=== PATIENT | female | born 1980 | race Caucasian/White ===

== ENCOUNTER 2019-10-06 12:51 | Outpatient (CLI) | payer OTHER, SELFPAY ==
[2019-10-06 13:31] LABS: Add Urine Microscopic? YES; Appearance Urine Clear (Clear); Bilirubin Urine Negative (Negative); Blood Urine 1+ (Negative); Color Urine Yellow (Yellow); Glucose Urine UA Negative (Negative); Ketones Urine Negative (Negative); Leukocyte Esterase Ur Negative LEU/UL (Negative); Nitrate Urine Negative (Negative); Protein Urine Negative (Negative); Specific Grav Ur 1.025 (1.010-1.020); Urobilinogen Urine 0.2 mg/dL (0.2-1.0)
[2019-10-06 13:50] LABS: Squamous Epithelial Cell Urine Few /hpf (Few); WBC Urine 0-3 /hpf (0-3)
[2019-10-06 13:51] LABS: Bacteria Urine 2+ /hpf; Mucus Urine Heavy /lpf
== END 2019-10-06 12:52 | disposition home or self-care (01) ==
LOC: CHSLAB 12:52
PROVIDERS: PCP Nurse Practitioner Family; Visit Provider Nurse Practitioner Family
DX: R30.9 Painful micturition, unspecified (principal)
CPT/HCPCS: 81001

== ENCOUNTER 2020-12-04 16:54 | Outpatient (CLI) | payer OTHER, SELFPAY ==
[2020-12-04 18:27] LABS: SARS-CoV-2 RNA PCR Negative (Negative)
== END 2020-12-04 16:55 | disposition home or self-care (01) ==
LOC: CHSLAB 16:56
PROVIDERS: PCP Nurse Practitioner Family; Visit Provider Nurse Practitioner Family
DX: Z20.822 Contact with and (suspected) exposure to COVID-19 (principal)
CPT/HCPCS: C9803; U0003; U0005

== ENCOUNTER 2021-05-13 09:07 | Outpatient (CLI) | payer OTHER, SELFPAY ==
--- NOTE | ~2021-05-13 | US_ITS ---
EXAMINATION: US pelvic complete w TV DATE: 05/13/2021 09:37 INDICATION: Pelvic pain Comparison:Ultrasound dated 01/07/2019 TECHNIQUE: Multiple transabdominal and endovaginal sonographic images of the pelvis performed. FINDINGS: The uterus measures 9.1 x 3.2 x 5.3 cm. The endometrial complex measures 1.6 cm. There is f luid in the endometrium. The right ovary measures 3.2 x 2.5 x 2.5 cm and the left ovary measures 3.2 x 2.2 x 2.1 cm. There ar e small follicles in each ovary. Normal doppler signal in both ovaries. There is no free fluid in the pelvis. There are no abnormal masses seen on either side. IMPRESSION: 1. Thickened heterogeneous endometrium with endometrial fluid. Reviewed, dictated and finalized at location B. COORDINATOR
[2021-05-13 09:18] LABS: Basophils Absolute Auto 0.05 K/mm3 (0.00-0.10); Basophils Percent Auto 0.9 % (0.0-1.0); Eosinophils Absolute Auto 0.24 K/mm3 (0.02-0.50); Eosinophils Percent Auto 4.3 % (1.0-6.0); Hematocrit 43.1 % (35.0-49.0); Hemoglobin 14.3 g/dL (12.0-15.0); Immature Granulocyte Absolute 0.02 K/mm3 (0.00-0.00); Immature Granulocyte Percent A 0.4 % (0.0-0.0); Lymphocytes Percent Auto 35.5 % (18.0-42.0); Mean Corpuscular HGB Conc 33.2 g/dL (32.0-36.0); Mean Corpuscular Hemoglobin 29.6 pg (27.0-31.0); Mean Corpuscular Volume 89.2 fL (78.0-102.0); Mean Platelet Volume 8.9 fl (9.2-11.8); Monocytes Absolute Auto 0.26 K/mm3 (0.10-0.90); Monocytes Percent Auto 4.6 % (2.0-11.0); Neutrophils Absolute Auto 3.1 K/mm3 (1.7-7.2); Neutrophils Percent Auto 54.3 % (50.0-70.0); Platelet Count Result 219 K/mm3 (150-420); Red Blood Count 4.83 M/mm3 (4.20-5.40); White Blood Count 5.6 K/mm3 (4.8-10.8)
[2021-05-13 11:10] LABS: Alanine Aminotransferase 18 U/L (14-59); Albumin Level 3.8 g/dL (3.4-5.0); Alkaline Phosphatase 42 U/L (46-116); Anion Gap 9 mmol/L (8-16); Aspartate Amino Transferase 12 U/L (15-37); Bilirubin,Total 0.5 mg/dL (0.00-1.00); Blood Urea Nitrogen 11 mg/dL (7-18); Calcium 8.6 mg/dL (8.5-10.1); Carbon Dioxide 26 mmol/L (21-32); Chloride 105 mmol/L (98-108); Estimated Glomerular Filt Rate > 60; Glucose 84 mg/dL (70-99); Iron 107 ug/dL (50-170); Magnesium 2.1 mg/dL (1.8-2.4); Osmolality Calculated 288 mOsm/kg (285-295); Potassium 4.1 mmol/L (3.5-5.1); Sodium 140 mmol/L (136-145); Total Protein 6.5 g/dL (6.4-8.2); Vitamin B12 274 pg/mL (193-986)
[2021-05-13 11:25] LABS: Free T4 Free Thyroxine 0.96 ng/dL (0.76-1.46)
[2021-05-15 15:42] LABS: Vitamin D 25 Hydroxy 32 ng/mL (30-100)
== END 2021-05-13 09:08 | disposition home or self-care (01) ==
LOC: CHSIMG 09:08
PROVIDERS: PCP Nurse Practitioner Family; Visit Provider Nurse Practitioner Family
DX: R10.2 Pelvic and perineal pain (principal); N94.10 Unspecified dyspareunia; R53.83 Other fatigue; Z79.899 Other long term (current) drug therapy
CPT/HCPCS: 36415; 76830; 76856; 80053; 82306; 82607; 83540; 83735; 84439; 84443; 85025

== ENCOUNTER 2021-12-04 12:30 | Outpatient (CLI) | payer OTHER, SELFPAY ==
--- NOTE | 2021-12-04 12:49 | ECG_ITS ---
Measurements Intervals [place] Rate: 66 P: 76 [place]: 142 QRS: 80 QRSD: 91 T: 59 QT: 418 QTc: 438 Interpretive Statements SINUS RHYTHM NONSPECIFIC ST ABNORMALITY ABNORMAL ECG NO PREVIOUS ECG AVAILABLE FOR COMPARISON Electronically Signed On 12-04-2021 13:42:49 CDT by Rayo Neil M.D.
[2021-12-04 12:50] LABS: Basophils Absolute Auto 0.02 K/mm3 (0.00-0.10); Basophils Percent Auto 0.5 % (0.0-1.0); Eosinophils Absolute Auto 0.02 K/mm3 (0.02-0.50); Eosinophils Percent Auto 0.5 % (1.0-6.0); Hematocrit 44.1 % (35.0-49.0); Hemoglobin 15.3 g/dL (12.0-15.0); Immature Granulocyte Absolute 0.01 K/mm3 (0.00-0.00); Immature Granulocyte Percent A 0.2 % (0.0-0.0); Lymphocytes Absolute Auto 1.42 K/mm3 (1.10-4.50); Lymphocytes Percent Auto 33.4 % (18.0-42.0); Mean Corpuscular HGB Conc 34.7 g/dL (32.0-36.0); Mean Corpuscular Hemoglobin 30.5 pg (27.0-31.0); Monocytes Absolute Auto 0.22 K/mm3 (0.10-0.90); Monocytes Percent Auto 5.2 % (2.0-11.0); Neutrophils Absolute Auto 2.6 K/mm3 (1.7-7.2); Neutrophils Percent Auto 60.2 % (50.0-70.0); Platelet Count Result 239 K/mm3 (150-420); Red Blood Count 5.01 M/mm3 (4.20-5.40); Red Cell Distribution Width 12.1 % (11.6-14.4); White Blood Count 4.3 K/mm3 (4.8-10.8)
[2021-12-04 13:16] LABS: Alanine Aminotransferase 24 U/L (14-59); Alkaline Phosphatase 56 U/L (46-116); Anion Gap 9 mmol/L (8-16); Aspartate Amino Transferase 17 U/L (15-37); Bilirubin,Total 0.6 mg/dL (0.00-1.00); Blood Urea Nitrogen 8 mg/dL (7-18); Calcium 8.9 mg/dL (8.5-10.1); Carbon Dioxide 29 mmol/L (21-32); Chloride 101 mmol/L (98-108); Estimated Glomerular Filt Rate > 60; Free T4 Free Thyroxine 1.45 ng/dL (0.76-1.46); Glucose 99 mg/dL (70-99); Osmolality Calculated 286 mOsm/kg (285-295); Potassium 3.1 mmol/L (3.5-5.1); Sodium 139 mmol/L (136-145); Thyroid Stimulating Hormone 0.55 uIU/mL (0.36-3.74); Total Protein 7.1 g/dL (6.4-8.2)
[2021-12-08 17:09] LABS: Vitamin D 25 Hydroxy 78 ng/mL (30-100)
== END 2021-12-04 12:31 | disposition home or self-care (01) ==
LOC: CHSLAB 12:33
PROVIDERS: PCP Nurse Practitioner Family; Visit Provider Nurse Practitioner Family
DX: R53.83 Other fatigue (principal); Z79.899 Other long term (current) drug therapy
CPT/HCPCS: 36415; 80053; 82306; 84439; 84443; 85025; 93005

== ENCOUNTER 2022-01-15 12:38 | Outpatient (CLI) | payer OTHER, SELFPAY ==
[2022-01-15 13:27] LABS: HIV 1 P24 AG Negative (Negative); HIV 1/2 AB Negative (Negative)
[2022-01-17 15:52] LABS: RPR Screen Non-Reactive (Non-Reactive)
[2022-01-18 04:54] LABS: Hepatitis B Surface Antigen Nonreactive (Nonreactive); Hepatitis C Signal to Cutoff 0.01 ratio (<1.00); Hepatitis C Virus Antibody Nonreactive (Nonreactive)
[2022-01-20 10:34] LABS: HSV 1 IgM Screen Negative (Negative); HSV 2 IgM Screen Negative (Negative)
== END 2022-01-15 12:39 | disposition home or self-care (01) ==
LOC: CHSLAB 12:39
PROVIDERS: PCP Nurse Practitioner Family; Visit Provider Student in an Organized Health Care Education/Training Program
DX: Z20.2 Contact with and (suspected) exposure to infections with a predominantly sexual mode of transmission (principal)
CPT/HCPCS: 36415; 86592; 86695; 86696; 86703

== ENCOUNTER 2022-04-28 16:39 | Outpatient (NON) | payer OTHER, SELFPAY ==
[2022-04-28 16:49] LABS: Add Urine Microscopic? NO; Appearance Urine Clear (Clear); Bilirubin Urine Negative (Negative); Blood Urine Negative (Negative); Color Urine Light Yellow (Yellow); Glucose Urine UA Negative (Negative); Ketones Urine Negative (Negative); Leukocyte Esterase Ur Negative LEU/UL (Negative); Nitrate Urine Negative (Negative); Protein Urine Negative (Negative); Specific Grav Ur 1.015 (1.010-1.020); Urobilinogen Urine 0.2 mg/dL (0.2-1.0); pH Urine 7.5 (5.0-8.0)
== END 2022-04-28 16:40 | disposition home or self-care (01) ==
PROVIDERS: Visit Provider Nurse Practitioner Family
DX: R39.9 Unspecified symptoms and signs involving the genitourinary system (principal)
CPT/HCPCS: 81003

== ENCOUNTER 2022-10-23 18:38 | Emergency (ER) | payer OTHER, SELFPAY ==
[2022-10-23 18:44] VITALS: BP 141/84; PULSE 71; RESP 18; TEMP 36.8; O2SAT 98
[2022-10-23 18:47] VITALS: BP 141/84; PULSE 71; RESP 18; TEMP 36.8; O2SAT 98
[2022-10-23] MEDS: ORPHENADRINE CITRATE 30 MG/ML 2 ML VIAL 60 MG IM (18:59)
[2022-10-23] MEDS: KETOROLAC (*BKC) 60 MG/2 ML VIAL IM (18:59)
--- NOTE | 2022-10-23 19:00 | ED.BACK ---
HPI - Back Pain/Injury General Chief Complaint: Back Pain/Injury Stated Complaint: lower back pain Time Seen by Provider: 10/23/22 18:45 Source: patient Mode of arrival: ambulatory Limitations: no limitations History of Present Illness HPI Narrative: this is a 42-year-old female that just got back into town and while at the airport bent over to reach for her ID and felt a twinge in her left lower back with radiation into her left lower leg, currently she has pain in her L4 left paravertebral area with no radiation of her pain no numbness or tingling no saddle paresthesias no other injuries. MD elicited complaint: back pain Pertinent past history: prior back pain Onset (ago): day(s) Timing: constant Severity: moderate Pain scale (0-10): 8 Similar Symptoms Previously: Yes Quality: sharp and stabbing Related Data Home Medications Medication Instructions Recorded Confirmed acetaminophen 325 mg capsule 325 mg PO Q6H PRN Pain 09/04/20 10/23/22 (Tylenol) ibuprofen 600 mg tablet (IBU) 600 mg PO Q6H PRN Pain 09/04/20 10/23/22 clonazepam 0.5 mg tablet 0.5 mg PO TID PRN Anxiety 01/15/22 10/23/22 fluoxetine 40 mg capsule See Rx Instructions .Route .COMPLEX 04/28/22 10/23/22 clonazepam 0.5 mg tablet 0.5 mg PO BID 10/23/22 10/23/22 lamotrigine 25 mg tablet 25 mg PO BID 10/23/22 10/23/22 Allergies Allergy/AdvReac Type Severity Reaction Status Date / Time No Known Allergies Allergy Verified 10/23/22 18:46 Review of Systems Review of Systems: All systems reviewed & are unremarkable except as noted in HPI and below PMFSH Past Medical History Medical History Anemia Anxiety Depression Elective Hypertension Miscarriage Vaginal delivery Surgical History Surgical History H/O LEEP History of breast augmentation History of endometrial ablation History of tubal ligation Previous section [place] teeth removed Family History Family History Sibling Rectal cancer Father Bladder cancer Social History Social History Smoking status: Former smoker Tobacco type: e-cigarettes/vaping Alcohol intake: current Lack of Transportation: No Lack of Food: Never True Current Housing: I Have Housing Concerned About Future Housing: No Difficulty Paying Gas/Electric Bills: YES Difficulty Paying for Meds: No Currently Unemployed: YES Education: Trade/Vocational Certificate Difficulty w/ Childcare or Family Care: No Living arrangements: with family Occupation/Education: unemployed Exam Const: General: healthy appearing Nutritional Appearance: well nourished HENMT: Head: normal to inspection Neck: Neck: normal visual inspection and no lymphadenopathy Chest: Chest palpation & inspection: normal inspection of the chest Resp: Effort & Inspection: normal respiratory effort Auscultation: clear to auscultation bilaterally Cardio: Rate: regular rate Rhythm: regular rhythm GI: GI Palp: Yes Soft to palpation Auscultation: normal bowel sounds : General: Yes bladder normal to palpation Back/Spine/Pelvis: Back: no CVA tenderness Skin: General skin exam: normal color Rashes: no rashes Neuro: General: patient oriented x3 and moves all extremities Psych: Other: Negative straight leg raising test, does have L4 left paravertebral tenderness with palpation. Course Course Emergency Course: Patient received a dose of IM Toradol and IM muscle relaxer the patient's pain level has improved and advised no heavy lifting no bending or stretching and follow up with her primary if symptoms persist. Vital Signs Vital signs: Vital Signs Temperature 36.8 C 10/23/22 18:44 Pulse Rate 71 10/23/22 18:44 Respiratory Rate 18 10/23/22 18:44 Blood Pressur
[2022-10-23 19:20] VITALS: BP 130/82; PULSE 84; RESP 18; O2SAT 99
== END 2022-10-23 19:26 | disposition home or self-care (01) ==
PROVIDERS: Emergency Provider Emergency Medicine; PCP Nurse Practitioner Family
DX: S39.012A Strain of muscle, fascia and tendon of lower back, initial encounter (principal); I10 Essential (primary) hypertension; F17.219 Nicotine dependence, cigarettes, with unspecified nicotine-induced disorders; Z79.1 Long term (current) use of non-steroidal anti-inflammatories (NSAID); X50.0XXA Overexertion from strenuous movement or load, initial encounter
CPT/HCPCS: 96372; 99284; J1885; J2360

== ENCOUNTER 2022-10-28 15:24 | Outpatient (CLI) | payer OTHER, SELFPAY ==
--- NOTE | ~2022-10-28 | XR_ITS ---
EXAMINATION: XR lumbar spine 2-3V DATE: 10/28/2022 15:45 INDICATION: Low back pain, unspecified. TECHNIQUE: 3 views of lumbar spine were obtained. COMPARISON: None. FINDINGS: There is 4 degrees dextrocurvature of lumbar spine. Vertebral body heights are normal. Ther e is mildly decreased disc height at L3-L4 with endplate osteophytes. There is multilevel mild facet joint osteoarthritis. IMPRESSION: 1. Mild lumbar spondylosis. Reviewed, dictated and finalized at location E. IMPRESSION: 1. Mild lumbar spondylosis.
== END 2022-10-28 15:25 | disposition home or self-care (01) ==
LOC: CHSIMG 15:26
PROVIDERS: PCP Nurse Practitioner Family; Visit Provider Nurse Practitioner Family
DX: M54.50 Low back pain, unspecified (principal); M43.06 Spondylolysis, lumbar region
CPT/HCPCS: 72100

== ENCOUNTER 2022-12-16 11:02 | Outpatient (CLI) | payer OTHER, SELFPAY ==
[2022-12-16 12:10] LABS: HIV 1 P24 AG Negative (Negative); HIV 1/2 AB Negative (Negative)
[2022-12-19 16:51] LABS: RPR Screen Non-Reactive (Non-Reactive)
[2022-12-20 22:25] LABS: Hepatitis Be Antigen Nonreactive
[2022-12-20 22:27] LABS: Hepatitis C Virus Antibody Nonreactive
== END 2022-12-16 11:03 | disposition home or self-care (01) ==
LOC: CHSLAB 11:04
PROVIDERS: PCP Nurse Practitioner Family; Visit Provider Registered Nurse
DX: Z20.2 Contact with and (suspected) exposure to infections with a predominantly sexual mode of transmission (principal)
CPT/HCPCS: 36415; 86592; 86695; 86696; 86803; 87350; 87806

== ENCOUNTER 2022-12-23 09:06 | Outpatient (CLI) | payer OTHER, SELFPAY ==
--- NOTE | ~2022-12-23 | MMUS_ITS ---
EXAMINATION: MM diagnostic suki BI w olivia, US breast RT limited HISTORY: Referring physician reportedly felt a lump in the mid inner right breast TECHNIQUE: ML, MLO and CC 3-D tomosynthesis images of both breasts were performed and synthetic 2-D i mages were generated. CAD analysis was submitted and interpreted. High resolution targeted right vicky st ultrasound was performed. COMPARISON: None BREAST PARENCHYMAL COMPOSITION: There are scattered areas of fibroglandular density. FINDINGS: MAMMOGRAPHIC FINDINGS: No suspicious mass or architectural distortion, malignant calcification, skin thickening or retractio n is detected. ULTRASOUND: No suspicious mass or shadowing, cyst or other significant sonographic abnormality is noted at 3:00 5 cm from the nipple at the area of reported possible breast lump. IMPRESSION: 1. No mammographic or sonographic evidence of malignancy 2. Routine annual mammographic screening is recommended BI-RADS Category 1: Negative Reviewed, dictated and finalized at location A. IMPRESSION: 1. No mammographic or sonographic evidence of malignancy 2. Routine annual mammographic screening is recommended BI-RADS Category 1: Negative
== END 2022-12-23 09:07 | disposition home or self-care (01) ==
LOC: CHSIMG 09:07
PROVIDERS: PCP Nurse Practitioner Family; Visit Provider Registered Nurse
DX: N63.15 Unspecified lump in the right breast, overlapping quadrants (principal)
CPT/HCPCS: 76642; 77062; 77066; G0279

== ENCOUNTER 2023-06-13 21:38 | Emergency (ER) | payer MEDICAID, SELFPAY ==
--- NOTE | ~2023-06-13 | XR_ITS ---
EXAM: XR ankle LT min 3V DATE: 06/13/2023 21:56 HISTORY: FALL YESTERDAY. LEFT ANKLE PAIN. . COMPARISON: None available. FINDINGS: Normal mineralization. No fracture or dislocation. No lytic or blastic lesion. Joint space s are maintained. No erosion or periosteal change. Soft tissues within normal limits. IMPRESSION: No acute osseous finding in the left ankle. Reviewed, dictated and finalized at location K. [employer]
[2023-06-13 21:44] VITALS: BP 141/92; PULSE 76; RESP 20; TEMP 36.6; O2SAT 99
--- NOTE | 2023-06-13 21:49 | ED.LOWEXIN ---
HPI - Extremity Injury (Lower) General Chief Complaint: Extremity Injury, Lower Stated Complaint: injury to right ankle Time Seen by Provider: 06/13/23 21:46 Source: patient Mode of arrival: ambulatory Limitations: no limitations History of Present Illness HPI Narrative: Patient is a 42-year-old female with significant past medical history presents today with a left ankle injury. Patient denied before was drinking and fell down a ramp that is a wheelchair ramp and hurt her left ankle. Is very swollen and she has tried to keep ice on it and take ibuprofen is still swelling. She states today is very painful and the swelling has not gone down. complaint: ankle injury Onset (ago): day(s) Type of Injury: blunt and inversion Place: street/outdoors Severity: moderate Severity scale (1-10): 6 Relieving factors: NSAID and cold therapy Exacerbating factors: weight bearing and movement Context: fall and direct blow Associated symptoms: swelling Other symptoms: none Treatments prior to arrival: cold therapy and NSAIDS Related Data Home Medications Medication Instructions Recorded Confirmed fluoxetine 40 mg capsule See Rx Instructions .Route .COMPLEX 04/28/22 06/13/23 clonazepam 0.5 mg tablet 0.5 mg PO BID 10/23/22 06/13/23 lamotrigine 25 mg tablet 25 mg PO BID 10/23/22 06/13/23 Allergies Allergy/AdvReac Type Severity Reaction Status Date / Time nitrofurantoin AdvReac Severe Itching Verified 12/16/22 10:30 [From Macrobid] sulfamethoxazole AdvReac Severe Itching Verified 12/16/22 10:30 [From Bactrim] trimethoprim [From Bactrim] AdvReac Severe Itching Verified 12/16/22 10:30 Review of Systems Review of Systems: All systems reviewed & are unremarkable except as noted in HPI and below Constitutional: Constitutional: Reports as per HPI Eyes: Eyes: Reports no additional eye complaints ENT: Reports system reviewed and no additional complaints, except as documented Cardiovascular: Cardiovascular: Reports no additional cardiovascular complaints Respiratory: Respiratory: Reports no additional respiratory complaints Gastrointestinal: Gastrointestinal: Reports no additional gastrointestinal complaints Genitourinary: Genitourinary: Reports no additional female genitourinary complaints Musculoskeletal: Musculoskeletal: Reports as per HPI Integumentary/Breasts: Skin/Breast: Reports system reviewed and no additional complaints, except as docu Neurologic: Reports system reviewed and no additional complaints, except as documented Psychiatric: Psychiatric: Reports no additional psychiatric complaints Endocrine: Endocrine: Reports no additional endocrine complaints Hematologic/Lymphatic: Hematologic/Lymphatic: Reports no additional hematologic/lymphatic complaints Allergic/Immunologic: Allergic/Immunologic: Reports no additional allergic/immunologic complaints PMFSH Past Medical History Medical History Anemia Anxiety Depression Elective Hypertension Miscarriage Vaginal delivery Surgical History Surgical History H/O LEEP History of breast augmentation History of endometrial ablation History of tubal ligation Previous section [place] teeth removed Family History Family History Sibling Rectal cancer Father Bladder cancer Social History Social History Smoking status: Former smoker Tobacco type: e-cigarettes/vaping Alcohol intake: current Lack of Transportation: No Lack of Food: Never True Current Housing: I Have Housing Concerned About Future Housing: No Difficulty Paying Gas/Electric Bills: YES Difficulty Paying for Meds: No Currently Unemployed: YES Education: Trade/Vocational Certificate Difficulty w/ Childcare or Family Care: No Living arran
[2023-06-13 22:25] VITALS: BP 105/68; PULSE 80; RESP 18; TEMP 36.6; O2SAT 99
== END 2023-06-13 22:25 | disposition home or self-care (01) ==
LOC: CHSED 22:12
PROVIDERS: Emergency Provider Family Medicine; PCP Nurse Practitioner Family
DX: S93.402A Sprain of unspecified ligament of left ankle, initial encounter (principal); I10 Essential (primary) hypertension; F41.9 Anxiety disorder, unspecified; F32.A Depression, unspecified; Z79.899 Other long term (current) drug therapy; Z87.891 Personal history of nicotine dependence; W10.2XXA Fall (on)(from) incline, initial encounter
CPT/HCPCS: 29515; 73610; 99283; L4350

== ENCOUNTER 2023-06-22 14:54 | Emergency (ER) | payer OTHER, SELFPAY ==
--- NOTE | 2023-06-22 14:58 | ED.LOWEXIN ---
HPI - Extremity Injury (Lower) General Chief Complaint: Extremity Injury, Lower Stated Complaint: INJURED L ANKLE Time Seen by Provider: 06/22/23 15:17 Source: patient and RN notes reviewed Mode of arrival: ambulatory Limitations: no limitations History of Present Illness HPI Narrative: 43-year-old female presents concern for injury to her left ankle. She reports she injured the ankle about a week and a half ago, she was seen in the emergency room and had a normal x-ray and was told she had a sprain. She reports a continues to be swollen, bruised, painful. Reports she elevated and ices it when she can, and Mick wrap does help. She has been alternating Tylenol and ibuprofen. She denies decreased strength, sensation, range of motion MD complaint: ankle injury Related Data Allergies Allergy/AdvReac Type Severity Reaction Status Date / Time nitrofurantoin AdvReac Severe Itching Verified 06/22/23 15:18 [From Macrobid] sulfamethoxazole AdvReac Severe Itching Verified 06/22/23 15:18 [From Bactrim] trimethoprim [From Bactrim] AdvReac Severe Itching Verified 06/22/23 15:18 Review of Systems Review of Systems: CONSTITUTIONAL: Denies malaise, chills, sweats, or fever. SKIN: Denies rash or itching, open skin, laceration, abrasion, redness, warmth MUSCULOSKELETAL: Reports left ankle pain, swelling, bruising NEUROLOGIC: Denies numbness, weakness All systems reviewed & are unremarkable except as noted in HPI and below PMFSH Past Medical History Medical History Anemia Anxiety Depression Elective Hypertension Miscarriage Vaginal delivery Surgical History Surgical History H/O LEEP History of breast augmentation History of endometrial ablation History of tubal ligation Previous section [place] teeth removed Family History Family History Sibling Rectal cancer Father Bladder cancer Social History Social History Smoking status: Former smoker Tobacco type: e-cigarettes/vaping Alcohol intake: current Lack of Transportation: No Lack of Food: Never True Current Housing: I Have Housing Concerned About Future Housing: No Difficulty Paying Gas/Electric Bills: YES Difficulty Paying for Meds: No Currently Unemployed: YES Education: Trade/Vocational Certificate Difficulty w/ Childcare or Family Care: No Living arrangements: with family Occupation/Education: unemployed Comments At time of signature, agree with nursing past medical, surgical, social and family history. There is no relevant family history pertinent to the presenting complaint Exam Narrative: GENERAL: Well-appearing, well-nourished, and in no acute distress. HEAD: Normocephalic, atraumatic. EYES: PERRLA, conjunctivae clear NECK: Supple. CHEST: Speaks in full sentences. No respiratory distress. HEART: Regular rate and rhythm. Normal and equal peripheral pulses. EXTREMITIES: Left ankle has grossly normal strength and sensation, normal range of motion. Moderate ankle and foot edema, ecchymosis. 5/5 strength with ankle in digit flexion and extension. Normal sensation with sensitivity to light touch and pain. No point tenderness. No open wounds, no skin tenting, no devitalized tissue or atrophy, no trophic changes, no obvious deformity, alignment normal, nearby joints and structures intact. Distal pulses palpable and equal bilaterally, skin warm, dry, pink. Capillary refill less than 3 seconds. SKIN: Warm, dry, no rash. NEURO: Alert and oriented x3. PSYCH: Normal mood and affect Course Course Emergency Course: Patient is aware of diagnosis, understands and agrees to treatment plan. Anticipatory guidance given. Patient agrees to follow-up as directed and is aware of reasons to seek care at the
[2023-06-22 15:01] VITALS: BP 133/88; PULSE 64; RESP 16; TEMP 36.5; O2SAT 100
== END 2023-06-22 15:33 | disposition home or self-care (01) ==
PROVIDERS: Emergency Provider Nurse Practitioner; PCP Nurse Practitioner Family
DX: S93.402A Sprain of unspecified ligament of left ankle, initial encounter (principal); X58.XXXA Exposure to other specified factors, initial encounter; I10 Essential (primary) hypertension
CPT/HCPCS: 99212; G0463

== ENCOUNTER 2023-07-15 14:05 | Outpatient (NON) | payer OTHER, SELFPAY ==
[2023-07-15 14:28] LABS: Appearance Urine Sl Cloudy (Clear); Bilirubin Urine Negative (Negative); Blood Urine 1+ (Negative); Color Urine Yellow (Yellow); Glucose Urine UA Negative (Negative); Ketones Urine Negative (Negative); Leukocyte Esterase Ur Trace LEU/UL (Negative); Nitrate Urine Positive (Negative); Protein Urine Negative (Negative); Urobilinogen Urine 0.2 mg/dL (0.2-1.0); pH Urine 6.5 (5.0-8.0)
[2023-07-15 14:35] LABS: Add Urine Microscopic? YES
[2023-07-15 14:36] LABS: WBC Urine 0-3 /hpf (0-3)
[2023-07-15 14:37] LABS: Bacteria Urine 3+ /hpf; Squamous Epithelial Cell Urine Rare /hpf (Few)
[2023-07-16 08:11] LABS: Trichomonas Vag PCR NOT DETECTED (NOT DETECTE)
[2023-07-16 08:36] LABS: Chlamydia trachomatis NOT DETECTED (NOT DETECTE); Neisseria gonorrhoeae PCR NOT DETECTED (NOT DETECTE)
== END 2023-07-15 14:06 | disposition home or self-care (01) ==
LOC: CHSLAB 14:06
PROVIDERS: Visit Provider Nurse Practitioner Family
DX: N89.8 Other specified noninflammatory disorders of vagina (principal); Z87.898 Personal history of other specified conditions
CPT/HCPCS: 81001; 87077; 87086; 87088; 87186; 87491; 87591; 87661

== ENCOUNTER 2023-07-16 10:26 | Outpatient (NON) | payer OTHER, SELFPAY | END 2023-07-16 10:27 | disposition home or self-care (01) | LOC: CHSLAB 10:27 | PROVIDERS: Visit Provider Nurse Practitioner Family | DX: N89.8 Other specified noninflammatory disorders of vagina (principal) | CPT/HCPCS: 87070 ==

== ENCOUNTER 2023-08-26 13:31 | Outpatient (CLI) | payer OTHER, SELFPAY ==
[2023-08-26 13:41] LABS: Appearance Urine Clear (Clear); Bilirubin Urine 1+ (Negative); Blood Urine 3+ (Negative); Color Urine Yellow (Yellow); Glucose Urine UA Negative (Negative); Ketones Urine 1+ (Negative); Leukocyte Esterase Ur 2+ LEU/UL (Negative); Nitrate Urine Negative (Negative); Protein Urine Trace (Negative); Specific Grav Ur >= 1.030 (1.010-1.020)
[2023-08-26 13:53] LABS: Add Urine Microscopic? YES; Bacteria Urine 2+ /hpf; Mucus Urine Few /lpf; Squamous Epithelial Cell Urine Few /hpf (Few)
== END 2023-08-26 13:32 | disposition home or self-care (01) ==
LOC: CHSLAB 13:33
PROVIDERS: PCP Nurse Practitioner Family; Visit Provider Nurse Practitioner Family
DX: N89.8 Other specified noninflammatory disorders of vagina (principal); R31.9 Hematuria, unspecified; R82.90 Unspecified abnormal findings in urine
CPT/HCPCS: 81001; 87077; 87086; 87088; 87186

== ENCOUNTER 2023-10-15 10:22 | Outpatient (CLI) | payer OTHER, SELFPAY ==
[2023-10-15 10:33] LABS: Appearance Urine Clear (Clear); Bilirubin Urine Negative (Negative); Blood Urine Negative (Negative); Color Urine Light Yellow (Yellow); Glucose Urine UA Negative (Negative); Ketones Urine Negative (Negative); Leukocyte Esterase Ur Trace LEU/UL (Negative); Nitrate Urine Negative (Negative); Protein Urine Negative (Negative); Specific Grav Ur 1.015 (1.010-1.020); pH Urine 7.5 (5.0-8.0)
[2023-10-15 10:45] LABS: Add Urine Microscopic? YES
[2023-10-15 10:46] LABS: Amorphous Sediment Urine Few; Bacteria Urine 1+ /hpf; RBC Urine None seen /hpf (0-2); Squamous Epithelial Cell Urine Few /hpf (Few)
== END 2023-10-15 10:23 | disposition home or self-care (01) ==
LOC: CHSLAB 10:23
PROVIDERS: PCP Nurse Practitioner Family; Visit Provider Nurse Practitioner Family
DX: R31.9 Hematuria, unspecified (principal); N89.8 Other specified noninflammatory disorders of vagina
CPT/HCPCS: 81001; 87077; 87086; 87088; 87186

== ENCOUNTER 2023-12-22 00:49 | Emergency (ER) | payer OTHER, SELFPAY ==
[2023-12-22 00:52] VITALS: BP 132/80; PULSE 102; RESP 16; TEMP 36.3; O2SAT 97
--- NOTE | 2023-12-22 00:56 | ED.FEMALEGU ---
HPI - Female Genitourinary General Chief complaint: Urogenital-Female Stated complaint: UTI Time Seen by Provider: 12/22/23 00:56 Source: patient Mode of arrival: ambulatory Limitations: no limitations History of Present Illness HPI Narrative: 43-year-old female with a history of anxiety / depression, hypertension, anemia, status post BTL, Recurrent UTI presents to the ED with a 1 day history of -- dysuria /hematuria -- suprapubic pain no fever or chills. No back pain. MD elicited complaint: dysuria, UTI and difficulty urinating Pertinent past history: recurrent UTIs Onset (ago): day(s) ( 1 day) Severity: mild Female Urogenital Radiation: Suprapubic Quality of pain: burning Consistency: intermittent Vaginal discharge: none Vaginal bleeding: none Urinary symptoms: Dysuria, Urgency, Frequency, Hematuria and Difficulty Urinating Exacerbating factors: none Relieving factors: none Associated symptoms: abdominal pain Patient : No Related Data : 4 Para: 2 Total number of abortions (spontaneous and elective): 2 Home Medications Medication Instructions Recorded Confirmed clonazepam 0.5 mg tablet 0.5 mg PO DAILY PRN Anxiety 07/15/23 12/22/23 fluoxetine 40 mg capsule 80 mg PO DAILY 07/15/23 12/22/23 lamotrigine 100 mg tablet 100 mg PO DAILY 07/15/23 12/22/23 omeprazole 20 mg capsule,delayed 20 mg PO DAILY 07/15/23 12/22/23 release Allergies Allergy/AdvReac Type Severity Reaction Status Date / Time nitrofurantoin AdvReac Severe Itching Verified 10/23/23 11:59 [From Macrobid] sulfamethoxazole AdvReac Severe Itching Verified 10/23/23 11:59 [From Bactrim] trimethoprim [From Bactrim] AdvReac Severe Itching Verified 10/23/23 11:59 Review of Systems Review of Systems: All systems reviewed & are unremarkable except as noted in HPI and below Constitutional: Constitutional: Reports as per HPI and Reports no additional constitutional complaints Eyes: Eyes: Reports as per HPI and Reports no additional eye complaints ENT: Reports system reviewed and no additional complaints, except as documented and Reports as per HPI Cardiovascular: Cardiovascular: Reports as per HPI and Reports no additional cardiovascular complaints Respiratory: Respiratory: Reports as per HPI and Reports no additional respiratory complaints Gastrointestinal: Gastrointestinal: Reports as per HPI and Reports no additional gastrointestinal complaints Genitourinary: Genitourinary: Reports dysuria Musculoskeletal: Musculoskeletal: Reports no additional musculoskeletal complaints and Reports as per HPI Integumentary/Breasts: Skin/Breast: Reports system reviewed and no additional complaints, except as docu and Reports as per HPI Neurologic: Reports system reviewed and no additional complaints, except as documented and Reports as per HPI Psychiatric: Psychiatric: Reports no additional psychiatric complaints and Reports as per HPI Endocrine: Endocrine: Reports no additional endocrine complaints and Reports as per HPI Hematologic/Lymphatic: Hematologic/Lymphatic: Reports no additional hematologic/lymphatic complaints and Reports as per HPI Allergic/Immunologic: Allergic/Immunologic: Reports no additional allergic/immunologic complaints and Reports as per HPI PMFSH Past Medical History Medical History Anemia Anxiety Depression Elective Hypertension Miscarriage Vaginal delivery Surgical History Surgical History H/O LEEP History of breast augmentation History of endometrial ablation History of tubal ligation Previous section [place] teeth removed Family History Family History Sibling Rectal cancer Father Bladder cancer Social History Social History Smoking status: Former smoke
[2023-12-22 01:04] LABS: Appearance Urine Clear (Clear); Bilirubin Urine 1+ (Negative); Blood Urine 3+ (Negative); Glucose Urine UA 1+ (Negative); Ketones Urine Negative (Negative); Leukocyte Esterase Ur 2+ LEU/UL (Negative); Nitrate Urine Positive (Negative); Protein Urine 3+ (Negative); Specific Grav Ur >= 1.030 (1.010-1.020); pH Urine 6.5 (5.0-8.0)
[2023-12-22 01:09] LABS: Add Urine Microscopic? YES; Bacteria Urine 3+ /hpf; Color Urine Dark Orange (Yellow); RBC Urine >75 /hpf (0-2); Squamous Epithelial Cell Urine Few /hpf (Few); WBC Urine >75 /hpf (0-3)
[2023-12-22] MEDS: CIPROFLOXACIN 250 MG TABLET PO (01:18)
[2023-12-22 01:30] VITALS: BP 130/74; PULSE 78; RESP 18; O2SAT 98
--- NOTE | 2023-12-24 13:31 | PC.NURSE ---
FINAL URINE CULTURE RESULTS:ISOLATE 1: GREATER THAN 100,000 CFU/ML OF STAPHYLOCOCCUS SAPROPHYTICUS. PER DR STEWART NO CHANGE IN TREATMENT NEEDED.
== END 2023-12-22 01:30 | disposition home or self-care (01) ==
LOC: CHSED 01:18
PROVIDERS: Emergency Provider Internal Medicine Critical Care Medicine; PCP Nurse Practitioner Family
DX: N39.0 Urinary tract infection, site not specified (principal); I10 Essential (primary) hypertension; Z79.899 Other long term (current) drug therapy; Z87.891 Personal history of nicotine dependence
CPT/HCPCS: 81001; 87077; 87086; 87088; 99283; A9270

== ENCOUNTER 2024-01-05 11:49 | Outpatient (CLI) | payer OTHER, SELFPAY ==
--- NOTE | ~2024-01-05 | MM_ITS ---
EXAMINATION: MM screening suki BI w olivia HISTORY: Screening mammogram TECHNIQUE: Craniocaudal and mediolateral oblique 3-D tomosynthesis images were obtained and synthetic 2-D images were generated. CAD analysis was submitted and interpreted. COMPARISON: 12/23/2022 BREAST PARENCHYMAL COMPOSITION:Not Dense. There are scattered areas of fibroglandular density. FINDINGS: No suspicious mass, calcification, or architectural distortion are identified in either peña ast to suggest malignancy. There has been no suspicious interval change. IMPRESSION: No mammographic evidence of malignancy. Recommend routine screening mammography in one year. BI-RADS Category 1: Negative Reviewed, dictated and finalized at location .
== END 2024-01-05 11:50 | disposition home or self-care (01) ==
PROVIDERS: PCP Nurse Practitioner Family; Visit Provider Nurse Practitioner Family
DX: Z12.31 Encounter for screening mammogram for malignant neoplasm of breast (principal)
CPT/HCPCS: 77063; 77067

== ENCOUNTER 2024-01-29 14:04 | Outpatient (CLI) | payer OTHER, SELFPAY ==
--- NOTE | ~2024-01-29 | US_ITS ---
EXAMINATION: US pelvic complete w TV DATE: 01/29/2024 14:33 INDICATION: Abnormal uterine and vaginal bleeding. TECHNIQUE: Multiple transabdominal and transvaginal sonographic images of the pelvis were obtained. COMPARISON: Ultrasound 05/13/2021 FINDINGS: TRANSABDOMINAL ULTRASOUND: The uterus measures 8.1 x 4.1 x 4.2 cm. There is physiologic free fluid in the pelvis. TRANSVAGINAL ULTRASOUND: The endometrial complex measures 9 mm in thickness. There is trace fluid in the endometrial complex. There is 11 mm cyst in the myometrium. The right ovary measures 2.4 x 2.6 x 2.7 cm. The left ovary me asures 3.3 x 2.6 x 2.8 cm. There is normal vascular flow in the ovaries. IMPRESSION: 1. No specific etiology for the patient's symptoms. Reviewed, dictated and finalized at location A.
== END 2024-01-29 14:05 | disposition home or self-care (01) ==
LOC: CHSIMG 14:06
PROVIDERS: PCP Nurse Practitioner Family; Visit Provider Nurse Practitioner Obstetrics & Gynecology
DX: N93.9 Abnormal uterine and vaginal bleeding, unspecified (principal)
CPT/HCPCS: 76830; 76856

== ENCOUNTER 2024-03-04 05:10 | Day surgery (SDC) | payer OTHER, SELFPAY ==
--- NOTE | 2024-02-26 09:59 | SUR.PREOP ---
Report to the Outpatient Waiting Room, entrance under the green pavilion located off [facility], at time 0800 on date 03/04/24. Planned Procedure Time: 1000.? Time changes happen often and if your time is changed the preop area will call you the afternoon before. - You and your visitor will be asked to self-screen and do not enter if you have any COVID symptoms. Please call surgeon if you need to reschedule. - A mask is optional within the hospital at this time. Patients may have clear liquids (water, carbonated beverages, clear teas, apple juice) until 3 hours prior to surgery with a maximum of 20 ounces. - NO CLEAR LIQUIDS AFTER 0700 - No food from midnight until time of surgery and no smoking - Infants may have breast milk until 4 hours before surgery, infant formula 6 hours prior to surgery. - Children will be allowed to drink immediately following surgery.? If applicable, please bring a bottle or sippy cup to assist with drinking. Juice, water, soda, and popsicles are readily available.? For infants on formula, please bring formula the day of surgery.? Pacifiers are allowed. Take only the following medications with a SIP of water on the morning of surgery: ___CLONAZEPAM, FLUOXETINE, LAMOTRIGINE____ DO NOT STOP ANY OF YOUR OTHER PRESCRIPTION MEDICATIONS PRIOR TO SURGERY EXCEPT THE FOLLOWING Medications to discontinue per physician N/A Date to take last dose Please no make-up, nail sammarinese, hairspray, perfume, deodorant, or body powder the day of surgery.? No jewelry (including any body piercings) or valuables the day of surgery, leave them at home.? Please take a shower or bath the night before, or the morning of, surgery with an antibacterial soap.? Wear comfortable, loose fitting clothing.? Children are encouraged to wear pajamas. - Jewelry must be removed prior to entering the operating room.? Rings and piercings that are not removed may be cut off. - The hospital will not accept responsibility for valuables.? - Please leave all valuables, including medications, at home the day of surgery. If you are going home after surgery, a licensed trencher driver must drive you home.? - NO public transportation without another adult if you receive anesthesia. - We recommend that an adult stay with you for 24 hours following discharge. - We also recommend that you do not drive, make important decision, drink alcoholic beverages, or take any drugs that were not prescribed by your health care provider for at least 24 hours after your discharge time. For Pediatric surgeries, we recommend two adults accompany the child home. Follow any additional instructions given to you from your surgeon. Telephone instructions given to CATHLEEN OLVERA and asked if any additional questions and then verbalized understanding. Patient advised to call surgeon office or pre surgery nurse liaison [phone] if any additional questions.
[2024-02-26 10:14] VITALS: BMI 28.3
--- NOTE | 2024-03-04 07:56 | P.PNAN_ITS ---
Anes - Initial Pre Proc Eval Procedure: Operation Date: 03/04/24 09:00 Proposed Procedures p Hysteroscopy Dilation and Curettage, Removal of any Endometrial Lesions if Needed - Romulo Aguillon MD Date/Time: 03/04/24 07:56 Surgeon: Romulo Aguillon MD Pre Op Diagnosis: Abnormal Uterine Bleeding Patient Data Age: 44 Gender: F Height: 1.7 m Weight: 82 kg Allergies Allergy/AdvReac Type Severity Reaction Status Date / Time nitrofurantoin Allergy Severe Itching Verified 02/26/24 10:13 [From Macrobid] sulfamethoxazole Allergy Severe Itching Verified 02/26/24 10:13 [From Bactrim] trimethoprim [From Bactrim] Allergy Severe Itching Verified 02/26/24 10:13 Home Medications Medication Instructions Recorded Confirmed Type clonazepam 0.5 mg tablet 0.5 mg PO BID PRN Anxiety 07/15/23 02/26/24 History fluoxetine 40 mg capsule 40 mg PO BID 07/15/23 02/26/24 History lamotrigine 100 mg tablet 100 mg PO DAILY 07/15/23 02/26/24 History omeprazole 20 mg capsule,delayed 20 mg PO DAILY 07/15/23 02/26/24 History release Patient hx anesthesia problems: none Family hx anesthesia problems: none Results Review: All pre-operative results and documents have been reviewed as part of the pre- operative evaluation. [facility] Past Medical History Medical History Anemia Anxiety Depression Elective Hypertension Miscarriage Vaginal delivery Surgical History Surgical History H/O LEEP History of breast augmentation History of endometrial ablation History of tubal ligation Previous section [place] teeth removed Family History Family History Sibling Rectal cancer Father Bladder cancer Social History Social History Smoking status: Former smoker Tobacco type: e-cigarettes/vaping Additional smoking assessment comments: QUIT ~2019 Alcohol intake: current Lack of Transportation: No Lack of Food: Never True Current Housing: I Have Housing Concerned About Future Housing: No Difficulty Paying Gas/Electric Bills: YES Difficulty Paying for Meds: No Currently Unemployed: YES Education: Trade/Vocational Certificate Difficulty w/ Childcare or Family Care: No Living arrangements: with family Occupation/Education: unemployed Spiritual care concerns: No Anes - Eval Final PreProcedure Day of Procedure 03/04/24 07:56 Patient weight: overweight Heart: regular rate and rhythm Lungs: clear to auscultation Airway: Mallampati scale class II Neurological: alert and oriented Last oral intake: >/= 8 hours ASA classification: II Emergent: no Anesthetic plan: proceed Anesthesia type and monitoring: general GIVS and standard monitoring Results Review: All pre-operative results and documents have been reviewed as part of the pre- operative evaluation. Informed Consent: The patient's anesthetic plan and its attendant risks and benefits were discussed with the patient/family/POA. Questions were solicited and answers provided to the satisfaction of the patient/family/POA.
[2024-03-04 08:00] VITALS: BP 129/68; PULSE 71; RESP 18; TEMP 36.7; O2SAT 100
[2024-03-04] MEDS: LACTATED RINGERS 1,000 ML 30 ML IV CONT (08:00)
[2024-03-04] MEDS: ACETAMINOPHEN 500 MG TABLET 1000 MG PO (08:15)
--- NOTE | 2024-03-04 09:03 | WPDHPUPDATE1 ---
History and Physical Update Update Date/Time: 03/04/24 09:03 History and Physical has been reviewed, including an updated exam of the patient. There are NO changes in the patient's condition. Risks, benefits, and alternatives have been discussed and questions answered. Patient agrees to proceed with procedure. She agrees with hysteroscopy and dilation and curettage and removal of lesion if present.
--- NOTE | 2024-03-04 09:08 | WPDHPUPDATE1 ---
History and Physical Update Update Date/Time: 03/04/24 09:08 History and Physical has been reviewed, including an updated exam of the patient. There are NO changes in the patient's condition. Risks, benefits, and alternatives have been discussed and questions answered. Patient agrees to proceed with procedure.
[2024-03-04] MEDS: LIDOCAINE HCL 1% LOCAL INJ 20 ML VIAL 10 ML INFILTRATE (09:19)
[2024-03-04] MEDS: ceFAZolin 2 GM/D5W 50 ML 2 GM/50 ML BAG IVPB (09:38)
--- NOTE | 2024-03-04 10:09 | W.PM.PROC2 ---
Procedure Note - Detailed Date of Procedure 03/04/24 Pre-op Diagnosis Abnormal Uterine Bleeding Post-op Diagnosis Other (Uterine cavity adhesions) Procedure Performed Diagnostic hysteroscopy with dilation and curettage and endometrial shavings Surgeon Romulo Aguillon MD Anesthesia MAC and Local Indications patient with abnormal uterine bleeding also ultrasound with thickened endometrial stripe cystic unable to obtain office endometrial biopsy Findings uterus sound to 6.5 cm diffuse scarring in the uterine cavity with areas of cystic appearing though consistent with scar tissue Description of Procedure after informed consent was obtained patient was taken to the operating room and adequate IV sedation was administered she was placed in lithotomy position and prepped and draped in sterile fashion attention was turned to the vagina speculum was inserted. Single-tooth tenaculum placed on anterior lip of the cervix 10 cc of 1% lidocaine was injected at the cervical vaginal interface at the 2 and 5 and 8 and 10 position. Uterus was sounded to 6.5 cm. A Graham dilator was inserted it did feel scarred in there was able to dilate to a 4. The hysteroscope was then inserted and with hydrodilation the hysteroscope was advanced into the cavity there was noted to be a large amount of scar tissue most of the cavity was scarred on the left greater than the right there also was areas near the fundus that appeared a dense and cystic scarring though atrophic. The Aveta instrument was used to obtain shavings of the dense scarring efflux area the adhesions were very dense. hysteroscope was removed. The curettage was then performed scant tissue obtained. Tenaculum was taken off the cervix hemostasis noticed speculum removed patient tolerated procedure well and was taken to recovery in stable condition. Estimated Blood Loss 5 Drains No Packing No Pathology Yes ( Scant shavings and endometrial curetting) Complications No immediate complications Condition Stable Disposition Same day [facility] Billing Surgery - Charge Forward: Surgery Billing
[2024-03-04 10:10] VITALS: BP 96/62; PULSE 56; RESP 12; O2SAT 99
[2024-03-04 10:40] VITALS: BP 114/65; PULSE 50; RESP 14; O2SAT 100
[2024-03-04 10:55] VITALS: BP 112/65; PULSE 52; RESP 14
[2024-03-07 10:01] LABS: BEDSIDEPREGUCG Negative (Negative)
== END 2024-03-04 11:02 | disposition home or self-care (01) ==
PROVIDERS: PCP Nurse Practitioner Family; Visit Provider Obstetrics & Gynecology
PROC: 0U5B8ZZ Destruction of Endometrium, Via Natural or Artificial Opening Endoscopic (ICD-10-PCS; CPT 58563; principal; 2024-03-04 09:00)
DX: N93.9 Abnormal uterine and vaginal bleeding, unspecified (principal); N85.8 Other specified noninflammatory disorders of uterus; F41.9 Anxiety disorder, unspecified; F32.A Depression, unspecified; Z87.891 Personal history of nicotine dependence
CPT/HCPCS: 58558; 88305; A9270; J0690; J1885; J2003; J2250; J2405; J2704; J3010; J7120

== ENCOUNTER 2024-05-03 11:39 | Outpatient (CLI) | payer OTHER, SELFPAY ==
[2024-05-03 12:25] LABS: Alanine Aminotransferase 26 U/L (14-59); Albumin Level 3.9 g/dL (3.4-5.0); Alkaline Phosphatase 55 U/L (46-116); Aspartate Amino Transferase 17 U/L (15-37); Bilirubin Direct 0.1 mg/dL (0-0.2); Bilirubin,Total 0.5 mg/dL (0.00-1.00); Total Protein 6.5 g/dL (6.4-8.2)
== END 2024-05-03 11:40 | disposition home or self-care (01) ==
PROVIDERS: PCP Nurse Practitioner Family; Visit Provider Nurse Practitioner Family
DX: B35.1 Tinea unguium (principal)
CPT/HCPCS: 36415; 80076

== ENCOUNTER 2024-07-27 12:22 | Outpatient (CLI) | payer OTHER, SELFPAY ==
[2024-07-27 13:30] LABS: Alanine Aminotransferase 23 U/L (14-59); Alkaline Phosphatase 65 U/L (46-116); Aspartate Amino Transferase 17 U/L (15-37); Bilirubin Direct 0.2 mg/dL (0-0.2); Bilirubin,Total 0.6 mg/dL (0.00-1.00); Total Protein 7.2 g/dL (6.4-8.2)
[2024-07-27 13:30] LABS: Thyroid Stimulating Hormone Reflex 2.04 u/IU/mL (0.36-3.74)
[2024-07-27 13:31] LABS: HIV 1 P24 AG Negative (Negative); HIV 1/2 AB Negative (Negative)
[2024-07-28 07:53] LABS: Hepatitis Be Antibody NON-REACTIVE (NON-REACTIVE)
[2024-07-29 13:34] LABS: RPR Screen NON-REACTIVE (NON-REACTIVE)
== END 2024-07-27 12:23 | disposition home or self-care (01) ==
PROVIDERS: Nurse Practitioner Family; PCP Nurse Practitioner Obstetrics & Gynecology; Visit Provider Nurse Practitioner Family
DX: B35.1 Tinea unguium (principal); Z11.3 Encounter for screening for infections with a predominantly sexual mode of transmission; R63.5 Abnormal weight gain
CPT/HCPCS: 36415; 80076; 84443; 86592; 86707; 86803; 87806

== ENCOUNTER 2024-11-10 10:36 | Outpatient (NON) | payer OTHER, SELFPAY ==
[2024-11-10 10:46] LABS: Add Urine Microscopic? NO; Appearance Urine Clear (Clear); Glucose Urine UA Negative (Negative); Leukocyte Esterase Ur Negative LEU/UL (Negative); Nitrate Urine Negative (Negative); Specific Grav Ur 1.010 (1.010-1.020)
[2024-11-11 18:44] LABS: Trichomonas Vag PCR NOT DETECTED (NOT DETECTE)
== END 2024-11-10 10:37 | disposition home or self-care (01) ==
LOC: CHSLAB 10:38
PROVIDERS: Visit Provider Nurse Practitioner Family
DX: Z11.3 Encounter for screening for infections with a predominantly sexual mode of transmission (principal); N89.8 Other specified noninflammatory disorders of vagina
CPT/HCPCS: 81003; 87070; 87491; 87591; 87661

== ENCOUNTER 2025-02-09 16:06 | Outpatient (NON) | payer OTHER, SELFPAY ==
[2025-02-13 11:03] LABS: Trichomonas Vag PCR NOT DETECTED (NOT DETECTE)
== END 2025-02-09 16:07 | disposition home or self-care (01) ==
PROVIDERS: Visit Provider Nurse Practitioner Family
DX: Z11.3 Encounter for screening for infections with a predominantly sexual mode of transmission (principal); R30.0 Dysuria
CPT/HCPCS: 87070; 87086; 87186; 87491; 87591; 87661

== ENCOUNTER 2025-04-05 10:30 | Outpatient (CLI) | payer OTHER, SELFPAY ==
[2025-04-05 10:42] LABS: Hematocrit 44.5 % (35.0-49.0); Hemoglobin 14.8 g/dL (12.0-15.0); Immature Granulocyte Percent A 0.2 % (0.0-0.0); Lymphocytes Absolute Auto 1.29 K/mm3 (1.10-4.50); Mean Corpuscular HGB Conc 33.3 g/dL (32-36); Mean Corpuscular Hemoglobin 30.1 pg (27.0-31.0); Mean Corpuscular Volume 90.6 fL (78.0-102.0); Nucleated Red Blood Cells Absolute Auto 0.00 K/mm3 (0.00-0.00); Nucleated Red Blood Cells Perc 0.0 % (0-0.0); Platelet Count Result 238 K/mm3 (150-420); Red Blood Count 4.91 M/mm3 (4.20-5.40); White Blood Count 4.2 K/mm3 (4.8-10.8)
[2025-04-05 11:01] LABS: Iron 95 ug/dL (37-170)
[2025-04-05 11:04] LABS: Alanine Aminotransferase 15 U/L (6-35); Albumin Level 4.4 g/dL (3.5-5.1); Alkaline Phosphatase 46 U/L (38-126); Anion Gap 8 mmol/L (4-12); Aspartate Amino Transferase 21 U/L (14-36); Bilirubin,Total 0.6 mg/dL (0.2-1.3); Blood Urea Nitrogen 10 mg/dL (7-17); CRP < 0.5 mg/dL (<1.0); Calcium 8.9 mg/dL (8.4-10.2); Carbon Dioxide 26 mmol/L (22-30); Chloride 106 mmol/L (98-107); Cholesterol 161 mg/dL (0-200); Estimated Glomerular Filt Rate > 60; Glucose 71 mg/dL (65-110); HDL Direct 67 mg/dL; Osmolality Calculated 287 mOsm/kg (285-295); Potassium 4.1 mmol/L (3.4-5.0); Sodium 140 mmol/L (137-145); Total Protein 6.7 g/dL (6.3-8.2); Triglycerides 66 mg/dL (<150)
[2025-04-05 11:11] LABS: Percent Iron Saturation 38 % (20-50)
[2025-04-05 11:32] LABS: Thyroid Stimulating Hormone Reflex 1.510 uIU/mL (0.465-4.68)
[2025-04-05 12:13] LABS: Add Urine Microscopic? YES; Appearance Urine Clear (Clear); Glucose Urine UA Negative (Negative); Leukocyte Esterase Ur Negative LEU/UL (Negative); Nitrate Urine Negative (Negative); Specific Grav Ur 1.020 (1.010-1.020)
--- OUTSIDE RECORDS SUMMARY | 2025-04-05 12:23 | XMS_ITS ---
Author Organization Unknown Address [address] [place] [phone] Phone Care Team Providers Care Gyro Compass Tester Name Role Phone AASHISH MEIER Attending Unavailable NO PCP Primary Unavailable Results CBC W/ DIFF - Collect Date/T carissa: 02/26/2025 23:25 [facility] ID: [id number] [address] [place] [address], [phone] LOINC: 56655-9 Test Value Unit Reference Range Code Code System Flag WBC 7.3 10^3uL L=4.0 H=10.5 RBC 4.44 10^6uL L=4.20 H=5.40 HEMOGLOBIN 13.7 g/dL L=12.0 H=16.0 718-7 LOINC HEMATOCRIT 40.7 VOL% L=37.0 H=47.0 4544-3 LOINC MCV 91.7 fL L=81.0 H=99.0 MCH 30.9 pg L=27.0 H=32.0 MCHC 33.7 g/dL L=32.0 H=36.0 PLATELETS 219 10^3uL L=100 H=400 68951-0 LOINC RDW 12.2 % L=11.7 H=15.5 %GRAN 65.5 % L=40.0 H=70.0 35495-1 LOINC %LYMPH 26.5 % L=20.0 H=45.0 736-9 LOINC %MONO 5.6 % L=2.0 H=10.0 89213-5 LOINC %EOS 1.8 % L=0.0 H=6.0 713-8 LOINC %BASO 0.5 % L=0.0 H=3.0 706-2 LOINC #NEUT 4.8 10^3uL L=1.9 H=7.6 68719-7 LOINC #LYMPH 1.9 10^3uL L=0.9 H=4.9 52079-5 LOINC #MONO 0.4 10^3uL L=0.1 H=0.9 05541-3 LOINC #EOS 0.1 10^3uL L=0.0 H=0.6 712-0 LOINC #BASO 0.04 10^3uL L=0.00 H=0.10 69249-2 LOINC #IM GRANS 0.0 10^3uL L=0.0 H=7.0 43900-8 LOINC %IM GRANS 0.1 % L=0.0 H=5.0 92570-2 LOINC %NRB 0.0 L=0.0 H=0.2 52922-1 LOINC #NRB 0.000 L=0.000 H=0.012 94023-3 LOINC MANUAL DIFF NOT INDICATED RBC MORPH NOT INDICATED COMPREHENSIVE METABOLIC PANE L - Collect Date/Time: 02/26/2025 23:25 [facility] ID: [id number] [address] [place], [place], [phone] LOINC: 83405-9 Test Value Unit Reference Range Code Code System Flag FASTING UNKNOWN BUN 9 mg/dL L=7 H=20 3094-0 LOINC CREATININE 0.90 mg/dL L=0.52 H=1.04 2160-0 LOINC AGE 45 53529-2 LOINC eGFR 81 GLUCOSE 87 mg/dL L=74 H=106 2345-7 LOINC SODIUM 137 mmol/L L=132 H=144 2951-2 LOINC POTASSIUM 4.0 mmol/L L=3.5 H=5.1 2823-3 LOINC CHLORIDE 103 mmol/L L=98 H=107 2075-0 LOINC CO2 26.0 mmol/L L=22.0 H=30.0 2028-9 LOINC ANION GAP 12 L=10 H=20 66643-7 LOINC OSMOLALITY 282 mOs/kG L=280 H=296 85653-3 LOINC BUN/CREAT 10.0 3097-3 LOINC CALCIUM 8.7 mg/dL L=8.3 H=10.5 41569-4 LOINC AST 22 U/L L=15 H=46 1920-8 LOINC ALT 13 U/L L=9 H=72 1742-6 LOINC ALKALINE PHOS 57 U/L L=38 H=126 6768-6 LOINC TOTAL BILI 0.4 mg/dL L=0.2 H=1.3 1975-2 LOINC ALBUMIN 4.0 G/dL L=3.5 H=5.0 1751-7 LOINC TOTAL PROTEIN 6.6 g/L L=6.3 H=8.2 2885-2 LOINC A/G RATIO 1.5 31617-3 LOINC URINALYSIS w/Microscopy/C&S if indicated - Collect Date/Time: 02/26/2025 21:37 [facility] ID: [id number] [address] [place], [place], [phone] LOINC: 18035-6 Test Value Unit Reference Range Code Code System Flag UR SOURCE VOIDED 72312-2 LOINC COLOR DK YELLOW YELLOW 5778-6 LOINC CLARITY TURBID CLEAR 97376-7 LOINC A SPEC GRAVITY >=1.030 1.000-1.030 5811-5 LOINC A PH 5.5 5.0 - 6.5 5803-2 LOINC LEUK EST 1+ NEGATIVE 5799-2 LOINC A NITRATE POSITIVE NEGATIVE A PROTEIN 2+ NEGATIVE 5804-0 LOINC A GLUCOSE NEGATIVE NEGATIVE 84269-3 LOINC KETONES NEGATIVE NEGATIVE 25005-9 LOINC UROBILINOGEN 2.0 0.2 - 1.0 5818-0 LOINC BILIRUBIN 2+ NEGATIVE 56611-4 LOINC A BLOOD 3+ NEGATIVE 78920-1 LOINC A WBC TNTC 0 - 2 02967-2 LOINC A RBC PACKED 0 - 2 37200-8 LOINC A SQ EPITHELIAL FEW RARE-FEW BACTERIA 3+ NONE SEEN 90795-4 LOINC A MUCUS FEW NONE SEEN 8247-9 LOINC YEAST NOT PRESENT NOT PRESENT 20891-1 LOINC TRICHOMONAS NOT PRESENT NOT PRESENT 06385-1 LOINC SPERMATOZOA NOT PRESENT NOT PRESENT 04181-5 LOINC CASTS NOT PRESENT 09607-7 LOINC CRYSTALS NOT PRESENT 56444-0 LOINC CULTURE? YES 8251-1 LOINC DIAGNOSIS ABN LAB RESULT TEST URINE - Colle ct Date/Time: 02/26/2025 21:37 [facility] ID: [id number] [place] [address], [phone] LOINC: Test Value Unit Reference Range Code Code System Flag URINE PREG NEGATIVE CT ABD/PEL WO CONTRAST - Com pleted: 02/26/2025 23:04 LOINC: 37754-9 \TM00\\12PI\\DRAo\\BM09\ \[facility]Ho\ [address] [address] ---------NAME--------- NUMBER SEX AGE ADMIT DISC. XRAY# F/C TYPE WADE JACINTO [id number] F 45 02/26/25 33686 XB7 E.R. DATE OF : 1980 M/R# [id number] PH#: [phone] ED-34 [facility] LOCATION: TRANSCRIBED: 02/27/[address] ABD/PEL WO CONTRAST 83904 COMPLETED:02/26/25 23:04 MRP [id number] FLANK P-LEFT PHYSICIAN: JENNIFER R A D I O L O G Y R E P O R T Exam: CT ABD/PEL WO CONTRAST History: FLANK P-LEFT Comparison Study: None Technique: Multidetector spiral CT of the abdomen was performed from lung bases to pubic symphysis. Imaging was performed without IV contrast. Axial, coronal and sagittal multiplanar reformats were obtained from the axial data set by the technologist. Radiation Dose : 1. Abdomen/Pelvis: CTDIvol 20.54 mGy, DLP 903.84 mGy*cm. Findings: Evaluation of solid organs is limited due to lack of intravenous contrast use. Lung Bases: No acute or significant lung base finding. Normal heart size. No pleural or pericardial effusion. Liver: The liver is normal in size. No focal lesions. Gallbladder and Biliary Tree: Unremarkable Spleen: Unremarkable Pancreas: The pancreas is grossly normal in appearance. Adrenal Glands: Unremarkable Kidneys: Few punctate bilateral nonobstructing renal calculi. No hydronephrosis. Bladder: Grossly unremarkable for degree of distention. Bowel: The stomach is grossly normal in appearance. Small bowel and colon are normal in caliber and distribution. Normal appendix is visualized in the right lower quadrant without findings of appendicitis. Fairly large volume of stool throughout the colon. Ascites: Absent Lymphadenopathy: No mesenteric, retroperitoneal or periportal lymphadenopathy. Abdominal Wall and Mesentery: Unremarkable. Vasculature: The visualized abdominal aorta is normal in size and caliber. Evaluation of abdominal and pelvic vessels is limited due to lack of intravenous contrast. Pelvic Organs: Unremarkable Musculoskeletal: No aggressive focal bony lesions, acute fractures or dislocation. IMPRESSION: Few punctate bilateral nonobstructing renal calculi. No hydronephrosis. Fairly large volume of stool throughout the colon. Radiation optimization: All CT scans at this facility use at least one of these dose optimization techniques: automated exposure control mA and/or kV adjustment per patient size (includes targeted exams where dose is matched to clinical indication) or iterative reconstruction. PATTERN REPAIRER \ITLo\ \UNDo\ \UNDx\ \ITLx\ Reviewed and Electronically Signed by: Freddy Jones MD Signed Date: 02/27/25 00:31 Social History Type Status Start Date End Date Code Code Syst em Sex Female Hospital Discharge Instructions Should you have any questions prior to discharge, please contact a member of your healthcare team. If you have left the hospital and have any questions, please contact your primary care physician. Reason For Referral No Data Found Plan of Treatment No Data Found Encounters Encounter Diagnosis Start Date Code Code Sys tem Acute pyelonephritis 02/26/2025 SNOMED- CT Personal Care Team Section Imaging Narrative Notes [facility] 02/27/2025 00:[address] [address] ---------NAME--------- NUMBER SEX AGE ADMIT DISC. XRAY# F/C TYPE WADE JACINTO [id number] F 45 02/26/25 69496 XB7 E.R. DATE OF : 1980 M/R# [id number] #: [id number] ED-34 LOCATION: TRANSCRIBED: 02/27/25 CT ABD/PEL WO CONTRAST [id number] COMPLETED:02/26/25 23:04 MRP [id number] FLANK P-LEFT PHYSICIAN: JENNIFER RADIOLOGY REPORT Exam: CT ABD/PEL WO CONTRAST History: FLANK P-LEFT Comparison Study: None Technique: Multidetector spiral CT of the abdomen was performed from lung bases to pubic symphysis. Imaging was performed without IV contrast. Axial, coronal and sagittal multiplanar reformats were obtained from the axial data set by the technologist. Radiation Dose : 1. Abdomen/Pelvis: CTDIvol 20.54 mGy, DLP 903.84 mGy*cm. Findings: Evaluation of solid organs is limited due to lack of intravenous contrast use. Lung Bases: No acute or significant lung base finding. Normal heart size. No pleural or pericardial effusion. Liver: The liver is normal in size. No focal lesions. Gallbladder and Biliary Tree: Unremarkable Spleen: Unremarkable Pancreas: The pancreas is grossly normal in appearance. Adrenal Glands: Unremarkable Kidneys: Few punctate bilateral nonobstructing renal calculi. No hydronephrosis. Bladder: Grossly unremarkable for degree of distention. Bowel: The stomach is grossly normal in appearance. Small bowel and colon are normal in caliber and distribution. Normal appendix is visualized in the right lower quadrant without findings of appendicitis. Fairly large volume of stool throughout the colon. Ascites: Absent Lymphadenopathy: No mesenteric, retroperitoneal or periportal lymphadenopathy. Abdominal Wall and Mesentery: Unremarkable. Vasculature: The visualized abdominal aorta is normal in size and caliber. Evaluation of abdominal and pelvic vessels is limited due to lack of intravenous contrast. Pelvic Organs: Unremarkable Musculoskeletal: No aggressive focal bony lesions, acute fractures or dislocation. IMPRESSION: Few punctate bilateral nonobstructing renal calculi. No hydronephrosis. Fairly large volume of stool throughout the colon. Radiation optimization: All CT scans at this facility use at least one of these dose optimization techniques: automated exposure control mA and/or kV adjustment per patient size (includes targeted exams where dose is matched to clinical indication) or iterative reconstruction. PATTERN REPAIRER Reviewed and Electronically Signed by: Freddy Jones MD Signed Date: 02/27/25 00:31
--- OUTSIDE RECORDS SUMMARY | 2025-04-05 12:23 | XMS_ITS | Data Portability ---
Author Organization [facility], [address] [place] [address] Neurology (NM) Address [address] [place] [phone] Assessment Encounter Date Assessment Date Assessment LastModified by Organization Details LastModified Time 07/04/2024 07/04/2024 Patient with history significant for duodenal adenoma here for surveillance EGD to document clearance of the polyp. The indications, risks, potential complications, and alternatives of the procedure with possible biopsies and polypectomy were explained to the patient. The risks include but are not limited to bleeding (1 in 500) requring repeat procedure or hospitalization, perforation(1 in 1000) nessacitating surgery , 5% risk of missed lesions, infection, drug reaction, phlebitis, pneumonia, delayed post procedure bleeding. In the remote risk of catastrophic events, cardiovascular pulmonary collapse, stroke and , the patient understands and agrees to proceed. [email or web address] Not available 07/04/2024 12:37:57 Plan of Treatment Reminders Order Date Submit Date Provider Last Modified By Organization Details Last Modified Time Details Appointments None record ed. Lab None record ed. Referral None record ed. Procedures None record ed. Surgeries None record ed. Imaging None record ed. Medication Orders None record ed. Patient TargetsNo targets recorded. Patient InstructionsNo instructions recorded. Reason for Referral None Reported. Results Created Date Observation Date Name Description Value Unit Range Abnormal Flag Note LastModifiedBy Organization Detail LastModifiedTime 07/05/1907/05/2024 surgi sindy patho logy study tissue exam biopsy [facility] [address],[place] [address] Ph. Yahir Leger MD, PhD, Medic al Direc tor TOM KELLOGG MD Patie nt: THIAGO BLUE e ID: [id number] Repor t Statu s: Final :1 1979 Case #: [id number] Age: 44 Y Gende r: F Date Colle cted: 07/04 MRN # : [id number] Date Recei nahum: 07/04 Repor denise Date: 07/05 FINAL DIAGN OSIS: A. Small bowel , duode num, biops y; - Small bowel mucos a with no signi fican t patho logic abnor malit y B. Stoma ch, biops y - Benig n gastr ic oxynt ic and antra l mucos a with miguel n pump inhib itor relat ed featu res, negat briana for Helic obact er organ isms on routi ne stain C. Esoph renard, dista l, biops y: - Benig n gastr oesop hagea l junct ion mucos a with chron ic infla mmati on and reflu x relat ed featu res (see comme nt) - Negat briana for intes tinal metap lasia ([facility] ) COMME NT: C: Foci with > 15 intra epith elial eosin ophil s per high- power field are ident ified . Sugge st clini sindy and endos copic corre latio n to evalu ate for coexi stent eosin ophil ic esoph agiti s. Elect leslie arreaga Verif ied by Millie meng MD Elect leslie Silva turdanish 07/05 12:25 SPECI MEN SOURC E: A. Small bowel , duode num, biops y B. Stoma ch, biops y C. Esoph renard, dista l, biops y GROSS DESCR IPTIO N: The speci men conta iners and requi sitio n have the same patie nt name. A. Recei nahum in 10% neutr al buffe red forma iris for forma iris-f ixed paraf fin-e mbedd ed secti ons label ed A, duode nal biops y are two fragm ents of steele- subramanian soft tissu e that are both 0.3 cm in great est dimen tabitha. The speci men is entir christian submi tted for histo logic study in one feltone tte. B. Recei nahum in 10% neutr al buffe red forma iris for forma iris-f ixed paraf fin-e mbedd ed secti ons label ed B, gastr ic biops y are four fragm ents of steele- subramanian soft tissu e that are 0.3-0 .5 cm in great est dim tabitha. The speci men is entir christian submi tted for histo logic study in one casse tte. C. Recei nahum in 10% neutr al buffe red forma iris for forma iris-f ixed paraf fin-e mbedd ed secti ons label ed C, dista l esoph renard biops y rule out [place] tt's are four fragm ents of steele- subramanian soft tissu e that are 0.2-0 .5 cm in great est [facility] tabitha. The speci men is entir christian submi tted for histo logic study in one feltone tte. CLIN[facility] BAR[facility] N: Adeno ma of duode num. Not Available [facility] [address], [address], 07/05/2024 13:35:18 07/05/19 25 07/04/2024 pregn emerald test, urine HCG negati ve Not Available Administrat iv e Office ([facility]) [address] [place] [address], [phone], 07/04/2024 11:54:01 Result Notes None recorded. Problems Name Problem SNOMED Code Status Onset Date Resolution Date Notes Provider Name and Address Organization Details Recorded Time Polyp of colon 15753242 Active [address] [facility] 4 12:16:10 Constipation 31427379 Active [address] [facility] 4 12:16:18 Adenoma of duodenum 749513845 Active 2023 Torrey mccray MD [address] [place] [address], [phone], [facility] 5 12:37:36 Problem Notes None recorded. Procedures Surgical History Date Name Laterality Status Provider Name and Address Organization Details Recorded Time 2023 esophagogastroduodenoscopy completed Richard Silva I [facility] 4 09:25:20 Imaging Results None recorded. Procedure Notes None recorded. Medical Equipment None Reported. Medications Name Sig Start Date Stop Date Status Note LastModified by Organization Details LastModified Time Protonix 40 mg tablet,delaye d release Take 1 tablet every day by oral route. active Not Available Not Available No t Available Klonopin 0.5 mg tablet Take 1 tablet by oral route as needed. active Not Available Not Available No t Available lamotrigine daily active Not Available Not A vailable Not Available Prozac 80 mg daily active Not Available Not Available No t Available Vitals None Recorded Social History None recorded. Functional Status None recorded. Mental Status None recorded. Family History Nothing Reported. Medical History No medical history recorded. Gynecological HistoryNo gynecological history recorded. Obstetrics History GPAL:G 0 P 0 0 0 0 Past Encounters Encounter ID Performer Location Encounter Start Date Encounter Closed Date Diagnosis/Indication Diagnosis SNOMED-CT Code Diagnosis ICD10 Code Diagnosis IMO Codes Diagnosis Note [id number] Rayo Huynh MD [facility]esthes[facility] S [address] [place] [phone] 07/04/2024 11:10:21 07/08/2024 08:33:10 [id number] Torrey edge MD [facility] ([place]) [address] [place] [address], [address] [place] [phone] 07/04/2024 11:10:22 07/08/2024 07:44:32 Adenoma of duodenum 602925671 D13.2 5351412 Health Concerns Section Related Observation LastModified by Organization Detai ls LastModified Time None Recorded Concern Status LastModified by Organization Details LastModified Time None Recorded Advance Directives Directive None Recorded Payers Insurance Date Sequence Insurance Name Policy Number Policy Aquino Covered Member ID Aquino Member ID Guarantor Name 03/08/2025 1 [facility] - DOS ON OR AFTER 20 (MEDICAID REPLACEMENT - HMO) Thiago Levi [id number] Thiago Levi Notes Date Note Type Note Provider Name and Address Organization Details Recorded Time 07/04/2024 text/html ROS as noted in the HPI Patient is a 44-year-old female with history significant for duodenal adenoma, history of colon polyps and family history of colon cancer here for EGD to rule out any recurrence of duodenal adenoma. Patient's last EGD was performed in 2019. Her last colonoscopy was performed in 2019 and was negative for any polyps. Torrey Byrne MD [address] [place] [address], [phone], [facility] 07/04/2024 12:38:00 07/04/2024 text/html [facility] PRE-ANEST HETIC EVALUATIONReported by PatientReason for VisitFor reason for visit, patient reportsproposed procedure: egd,surgeon: jazzy, andpreop diagnosis: benign neoplasm of duodenum.Review of SystemsFor general, patient reportsexercise tolerance good,denies sob, young, pnd,denies chest pain or chest tightness, and__ obesity. For pulmonary, patient reportsvaping hx. For gi, patient reportsgerd __. For pysch, patient reportsdepression.PSH-C omplication/FM HXFor prior anesthetic complication, patient reportsno history of anesthesia complications. For family anesthetic hx, patient reportsno history of anesthesia complications.Physical ExamFor physical exam: airway, patient reportsmp ii. For teeth, patient reportswnl. For neck, patient reportswnl. For cardiovascular, patient reportsregular rate and rhythm. For respiratory, patient reportsclear to auscultation bilaterally. For gastrointestinal, patient reportsnpo status >6 hrs solids, >2 hrs clear liquids. For vital signs, patient reportsvital signs reviewed. please refer to nursing preop note for values.Assessment and PlanFor assessment, patient reportsasa ps: ii. For plan, patient reportsmac.DiscussionFo r discussion, patient reportsi have discussed with the patient the anesthetic plan, alternatives, pertinent risks, and complications; including but not limited to ponv, dental injury, sore throat, mi, stroke, etc. all questions were answered. patient verbalize(s) understanding and agree(s) to proceed.. Rayo Huynh MD [address] [facility], [place], [phone], [facility] 07/04/2024 11:28:46 OBGyn Episode No OBEpisode recorded.
[2025-04-05 12:53] LABS: Ferritin 40.50 ng/mL (6.24-137)
[2025-04-05 18:04] LABS: Vitamin B12 206.0 pg/mL (239-931)
== END 2025-04-05 10:31 | disposition home or self-care (01) ==
PROVIDERS: PCP Nurse Practitioner Family; Visit Provider Nurse Practitioner Family
DX: Z00.00 Encounter for general adult medical examination without abnormal findings (principal); R10.A3 Flank pain, bilateral; R68.89 Other general symptoms and signs; D72.819 Decreased white blood cell count, unspecified; N89.8 Other specified noninflammatory disorders of vagina
CPT/HCPCS: 36415; 80053; 80061; 81001; 82607; 82728; 82746; 83540; 83550; 84443; 85025; 86140; 87101; 87798